=== PATIENT | female | born 1995 | race Caucasian/White ===

== ENCOUNTER → 2018-10-12 13:05 | Outpatient (CLI) | payer OTHER, SELFPAY ==
--- NOTE | 2018-10-12 | DI.RAD.S_ITS ---
PROCEDURE: XR CHEST 2V INDICATIONS: COUGH TECHNIQUE: 2 views of the chest were acquired. COMPARISON: None. FINDINGS: Surgical changes and devices: None. Lungs and pleura: Lungs are clear. No pleural effusions or pneumothorax. Mediastinum: Mediastinal contours are normal. Heart size is normal. Bones and chest wall: No suspicious bony abnormalities. Soft tissues appear unremarkable. IMPRESSION: No acute cardiopulmonary disease. Dictated by: Conrad Ashton [facility] Interpreted: Bob Diallo MD on 10/12/2018 at 13:42 Approved by: Bob Diallo M.D. on 10/12/2018 at 15:15
== END ==
PROVIDERS: PCP Family Medicine; Visit Provider Family Medicine
DX: R05 Cough (principal)
CPT/HCPCS: 71046

== ENCOUNTER → 2019-06-28 15:59 | Outpatient (CLI) | payer OTHER, SELFPAY ==
--- NOTE | 2019-06-28 16:03 | DI.ECHO.S_ITS ---
[facility]---------+ [facility] +---------+ : : [address] [place] : : : : [id number] : : : : Phone: [phone]---------+ Echocardiogram Report + + :Name: CHRISTINE KEITH Study Date: 06/28/2019 Height: 72 in : :[facility] Weight: 145 lb : : Gender: Female BSA: 1.9 m2 : :: 1995 Age: 24 yrs BP: 100/64 mmHg: :Reason For Study: syncope, svt : :Ordering Physician: Dr. Barnes : :Rubio Performed By: Kelley Young : :Referring: DEWAYNE LEAHY : + + Interpretation Summary 1) Normal left ventricular size and thickness with low normal systolic function (EF 50-55%). Global longitudinal strain average is -17.1%. 2) Upper normal right ventricular size with normal function. 3) No significant valvular abnormalities. 4) No prior Echo available for comparison. Procedure: A two-dimensional transthoracic echocardiogram with color flow and Doppler was performed. The study quality was technically adequate. There is no prior echocardiogram noted for this patient. The patient was in normal sinus rhythm during the exam. Left Ventricle: The left ventricle is normal in size. There is normal left ventricular wall thickness. The ejection fraction is estimated to be 50-55%. Global longitudinal strain average of -17.1%. Right Ventricle: The right ventricle is at the upper limits of normal in size. The right ventricular systolic function is normal. Atria: The left atrial size is normal. Right atrial size is normal. The interatrial septum is intact with no evidence for an atrial septal defect. Mitral Valve: The mitral valve is normal in structure and function. There is trace mitral regurgitation. Aortic Valve: The aortic valve is normal in structure and function. The aortic valve is trileaflet. The aortic valve opens well. No aortic regurgitation is present. Tricuspid Valve: The tricuspid valve is normal in structure and function. There is mild tricuspid regurgitation. The right ventricular systolic pressure is estimated to be at least 16 mmHg based on an estimated right atrial pressure of 3 mm Hg. Pulmonic Valve: The pulmonic valve is normal in structure and function. There is trace pulmonic regurgitation. Great Vessels: The aortic root is normal size. The dimensions of the ascending aorta are normal. The pulmonary artery is normal size. The IVC is of normal diameter and collapses greater than 50% with a sniff. This suggests a low right atrial pressure of 3 mm Hg. Pericardium/ Pleura There is no pericardial effusion. There is no pleural effusion. MMode/2D Measurements & Calculations LVIDd: 4.6 cm LVOT diam: 2.0 cm LVIDs: 3.2 cm Ao root diam: 3.0 cm FS: 29.4 % asc Aorta Diam: 2.8 cm EPSS: 0.38 cm Ao Arch Diam (Prox Trans): 2.4 cm IVSd: 0.73 cm LVPWd: 0.92 cm LV neff. diameter/BSA (cm/m^2): 2.5 LV sys. diameter/BSA (cm/m^2): 1.7 LA A2 area: 10.9 cm2 RA long axis: 3.7 cm LA A4 area: 16.5 cm2 RA area: 13.3 cm2 LA length (vol): 4.9 cm RA vol: 40.8 ml LA vol: 31.3 ml RA : 22.0 ml/m2 LA vol index: 16.8 ml/m2 IVC diam: 1.4 cm RVD1 (basal): 4.0 cm TAPSE: 2.2 cm Doppler Measurements & Calculations Ao V2 max: 109.6 cm/sec LVOT Max Tulio: 96.7 cm/sec Ao V2 mean: 75.0 cm/sec LV V1 max P.7 mmHg Ao max P.8 mmHg LV V1 VTI: 18.5 cm Ao mean P.6 mmHg ASHWINI(I,D): 2.7 cm2 Ao V2 VTI: 21.7 cm ASHWINI(V,D): 2.8 cm2 sev ratio: 0.85 ASHWINI indexed to BSA (cm^2/m^2): 1.4 MV E max tulio: 63.2 cm/sec TR max tulio: 179.1 cm/sec MV A max tulio: 61.6 cm/sec TR max P.8 mmHg MV E/A: 1.0 PA V2 max: 79.0 cm/sec Med Peak E' Tulio: 11.5 cm/sec PA V2 mean: 54.4 cm/sec E/E' med: 5.5 PA mean P.4 mmHg Lat Peak E' Tulio: 17.7 cm/sec PA pr(Accel): 12.2 mmHg E/E' lat: 3.6 E/e' average: 4.5 MV dec time: 0.24 sec SV(LVOT): 58.2 ml Reading Physician:11:39 AM
== END ==
PROVIDERS: PCP Family Medicine; Referring Provider Family Medicine; Visit Provider Family Medicine
DX: I07.1 Rheumatic tricuspid insufficiency (principal); R55 Syncope and collapse; I47.1 Supraventricular tachycardia
CPT/HCPCS: 93306